=== PATIENT | male | born 1955 | race Caucasian/White ===

== ENCOUNTER 2016-06-28 13:57 | Emergency (ER) | payer OTHER ==
[2016-06-28] MEDS ORDERED: KETOROLAC TROMETHAMINE 60 MG/2 ML VIAL ONE (14:15)
[2016-06-28 14:29] LABS: SPECIFIC GRAVITY 1.025 (1.001-1.030); URINE BILIRUBIN NEGATIVE (NEGATIVE); URINE BLOOD 3+ (NEGATIVE); URINE GLUCOSE (UA) NEGATIVE (NEGATIVE); URINE LEUKOCYTE ESTERASE NEGATIVE (NEGATIVE); URINE NITRITE NEGATIVE (NEGATIVE); URINE PROTEIN NEGATIVE (NEGATIVE); URINE UROBILINOGEN NORMAL (0-1 mg/dl)
[2016-06-28 14:32] LABS: URINE APPEARANCE HAZY; URINE COLOR YELLOW
--- NOTE | 2016-06-28 14:47 | CT ---
ABD/PELVIS W/O CON COMPARISON: CT abdomen and pelvis without contrast, 11/25/2010 HISTORY: Right flank pain Technique: Using a [employer] [address] scanner, images were obtained from the diaphragm to the floor the pelvis. No intravenous contrast. An automated dose reduction technique was used to minimize patient radiation dose. Dose: CTDIvol (mGy): 16.60 DLP(mGycm): 905.50 FINDINGS: Lung bases: Normal Inferior mediastinum and heart: Normal Liver: Normal Gallbladder: Removed. Bile ducts: Normal. Pancreas: Normal Spleen: Normal Adrenal glands: Normal Right kidney: In the interpolar right kidney, there are 3-4 one to 2 mm nonobstructing calculi. There is some inflammatory stranding in the fat surrounding the right kidney. There is mild right hydronephrosis. Left kidney: In the mid to lower pole left kidney, there are 2 nonobstructing calculi, 6.1 and 4.2 mm. There is a low-attenuation 17 mm diameter lesion in the parenchyma of the lower pole the left kidney, most likely a cyst. In the upper pole, 8.5 mm low-attenuation with 2 mm peripheral calcification, most likely a cyst. Ureters: Mild right hydroureter. At the right ureterovesical junction, 3.5 mm obstructing stone. Normal left ureter. Urinary bladder: Normal Prostate gland and seminal vesicles: Mild enlargement of the prostate gland with dystrophic aspirations. Normal seminal vesicles. Blood vessels: Normal. Lymph nodes: Normal Stomach: Normal Duodenum: Normal Small intestine: Normal Appendix: Normal Colon: Normal Abdominal wall and supporting musculature: Normal Bones: Degenerative changes in the spine. No lytic or blastic lesions. IMPRESSION: 1. In the distal right ureter close to the ureterovesical junction, obstructing 3.5 mm stone causing mild right hydronephrosis. 2. There are nonobstructing calculi in both kidneys. The left kidney, in the upper pole lower pole, there are cysts. 3. Incidental findings include cholecystectomy, mild enlargement of the prostate gland, and degenerative changes in the spine. The report was sent to the emergency department electronic medical record system, 06/28/2016 at 14:49
[2016-06-28 14:57] LABS: URINE EPITHELIAL CELLS 0-1 /hpf; URINE WBC 0-1 /hpf
[2016-06-28 14:58] LABS: URINE BACTERIA 0
== END 2016-06-28 14:49 | disposition home or self-care (01) ==
LOC: ED 13:57
DX: N20.0 Calculus of kidney (principal); K21.9 Gastro-esophageal reflux disease without esophagitis; B19.20 Unspecified viral hepatitis C without hepatic coma; F17.210 Nicotine dependence, cigarettes, uncomplicated; Z87.442 Personal history of urinary calculi
CPT/HCPCS: 81001; 74176; 99283 ×2; 96372; J1885